=== PATIENT | male | born 1985 | race Caucasian/White ===

== ENCOUNTER 2018-06-09 15:48 | Emergency (ER) | payer MEDICAID ==
[2018-06-09] MEDS ORDERED: Sodium Chloride 0.9% 10 ML Syringe FLUSH PRN (15:59)
[2018-06-09] MEDS ORDERED: Nitroglycerin 0.4 MG Tab.SL SL PRN (16:01)
[2018-06-09 16:26] LABS: CHLORIDE,CL 103 mmol/L (98-107); SODIUM,NA 141 mmol/L (136-145)
[2018-06-09] MEDS ORDERED: Aspirin 81 MG Tab.Chew PO ONE (16:56)
--- NOTE | 2018-06-09 17:04 | EDM.PDOC ---
ED HPI GENERAL MEDICAL PROBLEM - General Chief Complaint: General Stated Complaint: chest/back pain Time Seen by Provider: 06/09/18 15:50 Source of Information: Reports: Patient History Limitations: Reports: No Limitations - History of Present Illness INITIAL COMMENTS - FREE TEXT/NARRATIVE: Patient is a 22-year-old who was seen in the emergency room with chief complaint of right-sided chest pain radiating to the back and right shoulder he states the pain was about 6 out of 10 initially he did have one nitroglycerin ointment relieved somewhat troponins were negative at this time Onset: Today Duration: Hour(s):, Getting Worse Location: Reports: Chest Quality: Reports: Ache, Throbbing Severity: Moderate Improves with: Reports: Rest Worsens with: Reports: Cold Therapy Associated Symptoms: Reports: No Other Symptoms right sided chest pain Pain Score (Numeric/FACES): 5 - Related Data Allergies Allergy/AdvReac Type Severity Reaction Status Date / Time Penicillins Allergy Anaphylactic Verified 06/09/18 15:51 Shock Home Meds: Home Meds Multivitamin [Multi-Vitamin Daily] 1 each PO DAILY 10/19/13 [History] Past Medical History - Past Health History Medical/Surgical History: Denies Medical/Surgical History Social & Family History - Tobacco Use Smoking Status *Q: Current Every Day Smoker Years of Tobacco use: 15 Packs/Tins Daily: 0.2 Used Tobacco, but Quit: No - Caffeine Use Caffeine Use: Reports: Tea - Recreational Drug Use Recreational Drug Use: No - Living Situation & Occupation Living situation: Reports: Single Occupation: Employed ED ROS GENERAL - Review of Systems Review Of Systems: ROS reveals no pertinent complaints other than HPI. ED EXAM, GENERAL - Physical Exam Exam: See Below Exam Limited By: No Limitations General Appearance: Alert, WD/WN, No Apparent Distress Ears: Normal External Exam, Normal Canal, Hearing Grossly Normal, Normal TMs Ear Exam: Bilateral Ear: Auricle Normal, Canal Normal, TM normal Nose: Normal Inspection, Normal Mucosa, No Blood Throat/Mouth: Normal Inspection, Normal Lips, Normal Teeth, Normal Gums, Normal Oropharynx, Normal Voice, No Airway Compromise Head: Atraumatic, Normocephalic Neck: Normal Inspection, Supple, Non-Tender, Full Range of Motion Respiratory/Chest: No Respiratory Distress, Lungs Clear, Normal Breath Sounds, No Accessory Muscle Use, Chest Non-Tender Cardiovascular: Normal Peripheral Pulses, Regular Rate, Rhythm, No Edema, No Gallop, No JVD, No Murmur, No Rub GI/Abdominal: Normal Bowel Sounds, Soft, Non-Tender, No Organomegaly, No Distention, No Abnormal Bruit, No Mass (Male) Exam: No Hernia, Normal Inspection, Normal Prostate, Circumcised Rectal (Males) Exam: Normal Exam, Normal Rectal Tone, Prostate Normal Back Exam: Normal Inspection, Full Range of Motion, NT Extremities: Normal Inspection, Normal Range of Motion, Non-Tender, Normal Capillary Refill, No Pedal Edema Neurological: Alert, Oriented, CN II-XII Intact, Normal Cognition, Normal Gait, Normal Reflexes, No Motor/Sensory Deficits Psychiatric: Normal Affect, Normal Mood Skin Exam: Warm, Dry, Intact, Normal Color, No Rash Lymphatic: No Adenopathy Course - Vital Signs Last Recorded V/S: Last Vital Signs Temp 98.7 F 06/09/18 15:55 Pulse 60 06/09/18 17:45 Resp 13 06/09/18 17:45 BP 111/60 06/09/18 17:45 Pulse Ox 95 06/09/18 17:45 - Orders/Labs/Meds Orders: Active Orders 24 hr Category Date Time Status EKG Documentation Completion [RC] ASDIRECTED Care 06/09/18 16:00 Active Pulse Oximetry [RC] CONTINUOUS Care 06/09/18 16:00 Active Ready for Discharge [RC] PER UNIT ROUTINE Care 06/09/18 20:32 Active Chest 2V [CR] Stat Exams 06/09/18 15:59 Taken Saline Lock Insert [OM.PC] Stat Oth 06/09/18 16:00 Ordered Labs: Laboratory Tests 06/09/18 06/09/18 06/09/18 Range/Units 16:00 16:00 20:00 WBC 9.9 (4.0-10.2) K/uL RBC 4.17 L (4.33-5.41) M/uL Hgb 13.2 (13.1-16.8) g/dL Hct 37.9 L (39.0-49.0) % MCV 90.9 (84.0-98.0) fL MCH 31.7 (28.2-33.3) pg MCHC 34.8 (31.7-36.0) g/dL RDW 12.8 (11.2-14.1) % Plt Count 130 L (150-350) K/uL Neut % (Auto) 61.4 (45.0-80.0) % Lymph % (Auto) 30.3 (10.0-50.0) % Brown % (Auto) 7.6 (2.0-14.0) % Eos % (Auto) 0.5 (0.0-5.0) % Baso % (Auto) 0.2 (0.0-2.0) % Neut # (Auto) 6.09 (1.40-7.00) K/uL Lymph # (Auto) 3.00 (0.50-3.50) K/uL Brown # (Auto) 0.75 (0.00-1.00) K/uL Eos # (Auto) 0.05 (0.00-0.50) K/uL Baso # (Auto) 0.02 (0.00-0.20) K/uL Sodium 141 (136-145) mmol/L Potassium 3.9 (3.5-5.1) mmol/L Chloride 103 (98-107) mmol/L Carbon Dioxide 28.9 (21.0-32.0) mmol/L BUN 12 (7-18) mg/dL Creatinine 0.87 (0.51-1.17) mg/dL Est Cr Clr Drug Dosing 127.42 mL/min Estimated GFR (MDRD) > 60 mL/min Glucose 87 (74-106) mg/dL Calcium 9.3 (8.5-10.1) mg/dL Total Bilirubin 0.5 (0.2-1.0) mg/dL AST 20 (15-37) U/L ALT 26 (12-78) U/L Alkaline Phosphatase 41 L (46-116) IU/L Troponin I 0.000 0.002 (0.000-0.056) ng/mL Total Protein 7.4 (6.4-8.2) g/dL Albumin 4.2 (3.4-5.0) g/dL Meds: Medications Discontinued Medications Generic Name Dose Route Start Last Admin Trade Name Freq PRN Reason Stop Dose Admin Aspirin 324 mg 06/09/18 16:56 06/09/18 16:59 Aspirin PO 06/09/18 16:57 324 mg ONETIME ONE Administration Nitroglycerin 0.4 mg 06/09/18 16:01 06/09/18 16:08 Nitrostat SL 0.4 mg Q5M PRN Administration Chest Pain Sodium Chloride 10 ml 06/09/18 15:59 Saline Flush FLUSH ASDIRECTED PRN Keep Vein Open Departure - Departure Time of Disposition: 20:45 Disposition: Home, Self-Care 01 Condition: Good Clinical Impression: Chest pain Qualifiers: Chest pain type: chest pain on breathing Qualified Code(s): R07.1 - Chest pain on breathing - Discharge Information *PRESCRIPTION DRUG MONITORING PROGRAM REVIEWED*: No *COPY OF PRESCRIPTION DRUG MONITORING REPORT IN PATIENT CODY: No Instructions: Nonspecific Chest Pain, [id number], Nitroglycerin sublingual tablets Referrals: PCP,None [Primary Care Provider] - Forms: ED Department Discharge Care Plan Goals: We will go ahead and repeat his troponin and 4 hours and then decide what to do with him. Patient Troponin negative will dc to home with pain management of Ibuprofen 400mg Q6HR for pain. Follow up as needed with PCP - My Orders Last 24 Hours: My Active Orders 06/09/18 15:59 Chest 2V [CR] Stat 06/09/18 16:00 EKG Documentation Completion [RC] ASDIRECTED Pulse Oximetry [RC] CONTINUOUS Saline Lock Insert [OM.PC] Stat 06/09/18 20:32 Ready for Discharge [RC] PER UNIT ROUTINE - Assessment/Plan Last 24 Hours: My Active Orders 06/09/18 15:59 Chest 2V [CR] Stat 06/09/18 16:00 EKG Documentation Completion [RC] ASDIRECTED Pulse Oximetry [RC] CONTINUOUS Saline Lock Insert [OM.PC] Stat 06/09/18 20:32 Ready for Discharge [RC] PER UNIT ROUTINE
== END 2018-06-09 20:45 | disposition home or self-care (01) ==
LOC: LL.ED 15:48
DX: R07.1 Chest pain on breathing (principal); F17.210 Nicotine dependence, cigarettes, uncomplicated; Z88.0 Allergy status to penicillin
CPT/HCPCS: 36415; 71046; 80053; 84484; 85025; 93005; 99285; A9270

== ENCOUNTER 2019-09-07 10:50 | Emergency (ER) | payer MEDICAID, OTHER ==
--- NOTE | 2019-09-07 11:39 | EDM.PDOC ---
ED HPI GENERAL MEDICAL PROBLEM - General Chief Complaint: General Stated Complaint: hit in head by bottom of the drill Time Seen by Provider: 09/07/19 11:00 Source of Information: Reports: Patient History Limitations: Reports: No Limitations - History of Present Illness INITIAL COMMENTS - FREE TEXT/NARRATIVE: Pt hit on right side of forehead with bottom of drill No LOC Does have swelling to right side of head No other complaints Onset: Today, Sudden Location: Reports: Head Context: Reports: Trauma head pain Pain Score (Numeric/FACES): 4 - Related Data Allergies Allergy/AdvReac Type Severity Reaction Status Date / Time Penicillins Allergy Anaphylactic Verified 09/07/19 11:01 Shock Home Meds: Home Meds . [No Known Home Meds] 09/07/19 [History] Past Medical History - Past Health History Medical/Surgical History: Denies Medical/Surgical History Social & Family History - Caffeine Use Caffeine Use: Reports: Tea - Living Situation & Occupation Living situation: Reports: Single Occupation: Employed ED ROS GENERAL - Review of Systems Review Of Systems: See Below HEENT: Reports: Other (Right forehead with bruising and swelling) ED EXAM, GENERAL - Physical Exam Exam: See Below Exam Limited By: No Limitations General Appearance: Alert, No Apparent Distress Eye Exam: Bilateral Eye: EOMI, PERRL Ears: Normal External Exam Nose: Normal Inspection Head: Other (Right forehead with bruising and swelling Mimnimal brusing to upper eye lid) Neurological: Alert, Oriented, No Motor/Sensory Deficits Psychiatric: Normal Affect, Normal Mood Course - Vital Signs Last Recorded V/S: Last Vital Signs Temp 98.8 F 09/07/19 10:59 Pulse 78 09/07/19 10:59 Resp 20 09/07/19 10:59 BP 119/74 09/07/19 10:59 Pulse Ox 95 09/07/19 10:59 - Orders/Labs/Meds Orders: Active Orders 24 hr Category Date Time Status Head wo Cont [CT] Stat Exams 09/07/19 10:57 Ordered - Re-Assessments/Exams Free Text/Narrative Re-Assessment/Exam: 09/07/19 11:38 CT: Negative per radiologist Departure - Departure Time of Disposition: 11:45 Disposition: Home, Self-Care 01 Clinical Impression: Forehead contusion Qualifiers: Encounter type: initial encounter Qualified Code(s): S00.83XA - Contusion of other part of head, initial encounter - Discharge Information *PRESCRIPTION DRUG MONITORING PROGRAM REVIEWED*: Not Applicable *COPY OF PRESCRIPTION DRUG MONITORING REPORT IN PATIENT CODY: Not Applicable Instructions: Facial or Scalp Contusion Referrals: PCP,None [Primary Care Provider] - Sepsis Event Note (ED) - Evaluation Sepsis Screening Result: No Definite Risk - Focused Exam Vital Signs: Vital Signs Temp Pulse Resp BP Pulse Ox 09/07/19 10:59 98.8 F 78 20 119/74 95 - My Orders Last 24 Hours: My Active Orders 09/07/19 10:57 Head wo Cont [CT] Stat - Assessment/Plan Last 24 Hours: My Active Orders 09/07/19 10:57 Head wo Cont [CT] Stat
== END 2019-09-07 11:50 | disposition home or self-care (01) ==
LOC: LL.ED 10:50
DX: S00.83XA Contusion of other part of head, initial encounter (principal); Z88.0 Allergy status to penicillin; W22.8XXA Striking against or struck by other objects, initial encounter
CPT/HCPCS: 70450; 99283-25

== ENCOUNTER 2020-01-27 11:45 | Emergency (ER) | payer MEDICAID ==
--- NOTE | 2020-01-27 12:07 | EDM.PDOC ---
ED HPI GENERAL MEDICAL PROBLEM - General Chief Complaint: Lower Extremity Injury/Pain Stated Complaint: right leg pain Time Seen by Provider: 01/27/20 12:00 Source of Information: Reports: Patient, Old Records ([facility] chart/EMR) History Limitations: Reports: No Limitations - History of Present Illness INITIAL COMMENTS - FREE TEXT/NARRATIVE: The patient drove himself to the emergency room via private automobile for evaluation of -01/07 right low back pain associated with right sciatica over the lateral thigh and into the foot with no history of paresthesias, neurological deficits, injury, etc. He has missed work since 01/24 with his symptoms starting about 3 weeks ago. His symptoms have been refractory with care process manager for the last 3 weeks with patient following up with his regular provider, Aneesh Marie PA-C, at the [facility] in [place], yesterday with initiation of Celebrex and Flexeril therapy at that time, however no significant improvement in his symptoms. No recent history of abdominal pain, heartburn, nausea, diarrhea, melena, gross hematochezia, or any food intolerance, including fatty foods, etc.. He denies any gross hematuria, colic, or other UTI symptoms. The patient also denies any recent fever, cough, wheezing, dyspnea, etc.. Onset: Gradual, Other Duration: Week(s): (3 weeks as above), Getting Worse Location: Reports: Back, Lower Extremity, Right, Radiates to (As above). Denies: Head, Face, Neck, Chest, Abdomen, Pelvis, Upper Extremity, Left, Upper Extremity, Right, Lower Extremity, Left Quality: Reports: Same as Previous Episode, Sharp, Stabbing, Throbbing Severity: Severe Improves with: Reports: None Worsens with: Reports: None Context: Denies: Trauma, Other (As above) Treatments DIRECTOR WOMEN: Reports: Cold Therapy, NSAIDS, Other Medication(s) (As above) right leg pain Pain Score (Numeric/FACES): 8 - Related Data Allergies Allergy/AdvReac Type Severity Reaction Status Date / Time Penicillins Allergy Anaphylactic Verified 01/27/20 11:46 Shock Home Meds: Home Meds Celecoxib 200 mg PO BID 01/27/20 [History] Multivitamin 1 each PO DAILY 01/27/20 [History] diazePAM [Valium] 10 mg PO Q6H PRN #10 tab 01/27/20 [Rx] Past Medical History HEENT History: Reports: Other (See Below) Other HEENT History: Nasal polyps. Benign nasal Tornwaldt cyst. Respiratory History: Reports: Bronchitis, Recurrent Musculoskeletal History: Reports: Arthritis, Back Pain, Chronic, Osteoarthritis Neurological History: Reports: Headaches, Chronic, Migraines - Past Imaging History Past Imaging History: Reports: CAT Scan (CT of the head on 09/07/2019.), MRA (MRA and MRI of the brain on 12/17/2011.), MRI (MRI of the brain on 12/17/2011.), Ultrasound (Soft tissue ultrasound of the chest and diaphragm on 08/18/2015.) Social & Family History - Tobacco Use Tobacco Use Status *Q: Current Every Day Tobacco User Tobacco Use Within Last Twelve Months: Cigarettes Years of Tobacco use: 20 Packs/Tins Daily: 0.2 Packs/Tins Daily Comment: Started smoking at age 14 with maximum use of 1 pack/day. Used Tobacco, but Quit: Yes Smoking Cessation Information Provided To Patient: Yes Second Hand Smoke Exposure: No Second Hand Smoke Education Provided: No - Caffeine Use Caffeine Use: Reports: Tea - Alcohol Use Alcohol Use History: Yes Days Per Week of Alcohol Use: 0 Number of Drinks Per Day: 2 Number of Drinks Per Day Comment: Usually beer about once per year. No previous DWIs, problems with alcohol abuse, etc. Total Drinks Per Week: 0 Alcohol Use in Last Twelve Months: Yes - Recreational Drug Use Recreational Drug Use: Yes Drug Use in Last 12 Months: No Recreational Drug Type: Reports: Amphetamines (Speed), Marijuana/Hashish, Methamphetamine, Other (see below) Other Recreational Drug Type: Previous illicit drug use as above last used about 16 years ago. 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 ED EXAM, GENERAL - Physical Exam Exam: See Below Exam Limited By: No Limitations General Appearance: Alert, WD/WN, No Apparent Distress Head: Atraumatic Neck: Normal Inspection, Supple, Non-Tender, Full Range of Motion. No: Lymphadenopathy (L), Lymphadenopathy (R), Thyromegaly Respiratory/Chest: No Respiratory Distress, Lungs Clear, Normal Breath Sounds, No Accessory Muscle Use, Chest Non-Tender. No: Pleural Rub, Retractions Cardiovascular: Normal Peripheral Pulses, Regular Rate, Rhythm, No Edema, No Gallop, No JVD, No Murmur, No Rub. No: Gallop/S3, Gallop/S4, Friction Rub Peripheral Pulses: 2+: Radial (L), Radial (R), Dorsalis Pedis (L), Dorsalis Pedis (R) GI/Abdominal: Normal Bowel Sounds, Soft, Non-Tender, No Organomegaly, No Distention, No Abnormal Bruit, No Mass. No: Guarding (Male) Exam: Deferred Rectal (Males) Exam: Deferred Back Exam: Decreased Range of Motion (Mild secondary to discomfort), Muscle Spasm (Moderate right to lower lumbar region), Paraspinal Tenderness (Mild in right mid to lower lumbar region). No: CVA Tenderness (L), CVA Tenderness (R), Vertebral Tenderness Extremities: Normal Inspection, Normal Range of Motion, Non-Tender, No Pedal Edema, Normal Capillary Refill. No: Carlos's Sign Neurological: Alert, Oriented, CN II-XII Intact, Normal Cognition, Normal Gait, Normal Reflexes (4/4 DTRs of the lower extremities), No Motor/Sensory Deficits Psychiatric: Normal Affect, Normal Mood Skin Exam: Warm, Dry, Intact, Normal Color, No Rash. No: Diaphoretic, Wound/Incision Lymphatic: No Adenopathy Course - Vital Signs Last Recorded V/S: Last Vital Signs Temp 37.1 C 01/27/20 11:49 Pulse 87 01/27/20 13:44 Resp 12 01/27/20 13:44 BP 118/67 01/27/20 13:44 Pulse Ox 98 01/27/20 13:44 Vital Signs - 24 hr 01/27/20 01/27/20 11:49 13:44 Temperature [ 37.1 C Temporal] Pulse, 76 87 Peripheral [ Left] Respiratory 18 12 Rate Blood Pressure 117/66 118/67 [Left Upper Arm ] O2 Sat by Pulse 100 98 Oximetry - Orders/Labs/Meds Orders: Active Orders 24 hr Category Date Time Status Lumbar Spine Min 4V [CR] Stat Exams 01/27/20 12:08 Taken Labs: None Meds: Medications Discontinued Medications Generic Name Dose Route Start Last Admin Trade Name Freq PRN Reason Stop Dose Admin Diazepam 10 mg 01/27/20 12:08 01/27/20 12:13 Valium IM 01/27/20 12:09 10 mg ONETIME ONE Administration Meperidine HCl 50 mg 01/27/20 13:07 01/27/20 13:12 Demerol IM 01/27/20 13:08 50 mg ONETIME ONE Administration Methylprednisolone Acetate 80 mg 01/27/20 12:08 01/27/20 12:13 Depo-Medrol IM 01/27/20 12:09 80 mg ONETIME ONE Administration Promethazine HCl 50 mg 01/27/20 13:07 01/27/20 13:13 Phenergan IM 01/27/20 13:08 50 mg ONETIME ONE Administration - Radiology Interpretation Free Text/Narrative:: X-rays of the lumbar spine, complete, including oblique views, shows evidence of mild osteoarthritic changes with minimal decreased lordosis but no evidence of fracture, etc. Departure - Departure Time of Disposition: 14:10 Disposition: Home, Self-Care 01 Condition: Good Clinical Impression: Low back pain, Osteoarthritis, Tobacco abuse counseling - Discharge Information *PRESCRIPTION DRUG MONITORING PROGRAM REVIEWED*: Not Applicable *COPY OF PRESCRIPTION DRUG MONITORING REPORT IN PATIENT CODY: Not Applicable Prescriptions: diazePAM [Valium] 10 mg PO Q6H PRN #10 tab PRN Reason: Spasms Instructions: Steps to Quit Smoking, [id number], Health Risks of Smoking, Promethazine injection, Meperidine injection, Acute Back Pain, Adult, Diazepam injection, Methylprednisolone Solution for Injection, Chronic Back Pain, [id number], Diazepam tablets, Methylprednisolone Suspension for Injection Referrals: Aneesh Marie PA [Primary Care Provider] - Forms: ED Department Discharge, ED Return to Work/School Form Additional Instructions: 1. Followup with your regular provider in 7 days as directed with consideration of further physical therapy, scheduling of an MRI of the lumbar spine, etc. at that time depending on your symptoms. Bring these discharge instructions with you to that visit. 2. Tylenol 650 mg by mouth every 4 hours when necessary as directed. You may use this in a staggering manner with your current Celebrex therapy 3. Diazepam next dose as needed in 6 hours secondary to medications given in the emergency room. Sedation and dependency precautions with this medication as discussed. Do not take diazepam with your cyclobenzaprine, although your cyclobenzaprine may be reinitiated after you complete the diazepam therapy. 4. This facility will call you later for initiation of recommended physical therapy with continuation of chiropractic treatments thereafter as before. 5. Sedation precautions with no driving, etc. for 18 hours because of emergency room medications. 6. BenGay or equivalent, heating pad, and/or ice packs as directed. 7. Work excuse- See Form 8. Stop all tobacco use [facility] as directed/per provided information and consider contacting Quit LIne, etc.. 9. Immediately after this visit verify that your cellular telephone's voicemail has been activated and is empty. Also verify that your home telephone's answering machine is operating properly and has space to receive messages. Note that it is sometimes necessary for us to be able to contact you at a later date to discuss your medical care. 10. Please remember that we are ALWAYS here for you and want to answer any questions you may have. Feel free to call the hospital any time and we call you back [facility]. Sepsis Event Note (ED) - Evaluation Sepsis Screening Result: No Definite Risk - Focused Exam Vital Signs: Vital Signs Pulse Resp BP Pulse Ox 01/27/20 13:44 87 12 118/67 98 - Problem List & Annotations (1) Low back pain SNOMED Code(s): 594806170 Code(s): M54.5 - LOW BACK PAIN Status: Acute Priority: High Onset Date: ~01/06/20 Annotation/Comment:: Aggressive therapy as above with overall good results. Sedation precautions, activity precautions, etc. were discussed. Physical therapy will be initiated in this facility [facility] with continuation of previous chiropractic treatments. Close follow-up with his regular provider in 1 week as per discharge instructions. MRI of the lumbar spine should only be conducted for significantly refractory symptoms with physical therapy, etc., and if the patient is desiring surgery. Work excuse was provided. Qualifiers: Chronicity: acute Back pain laterality: right Sciatica presence: with sciatica Sciatica laterality: sciatica of right side Qualified Code(s): M54.41 - Lumbago with sciatica, right side (2) Osteoarthritis SNOMED Code(s): 344083259 Code(s): M19.90 - UNSPECIFIED OSTEOARTHRITIS, UNSPECIFIED SITE Status: Chronic Priority: Medium Annotation/Comment:: Otherwise stable by history Qualifiers: Osteoarthritis location: multiple joints Osteoarthritis type: primary Qualified Code(s): M89.49 - Other hypertrophic osteoarthropathy, multiple sites (3) Tobacco abuse counseling SNOMED Code(s): 433422152, 757187895, [id number] Code(s): Z71.6 - TOBACCO ABUSE COUNSELING Status: Chronic Priority: Medium Annotation/Comment:: Tobacco cessation was once again strongly encouraged with information provided. - Problem List Review Problem List Initiated/Reviewed/Updated: Yes - My Orders Last 24 Hours: My Active Orders 01/27/20 12:08 Lumbar Spine Min 4V [CR] Stat - Assessment/Plan Last 24 Hours: My Active Orders 01/27/20 12:08 Lumbar Spine Min 4V [CR] Stat Assessment:: As above Plan: As above. Extensive precautions were given to the patient, who is in agreement with the treatment plan. See Patient Instructions for further treatment and plan. A friend did come to pick him up to bring him home.
[2020-01-27] MEDS ORDERED: methylPREDNISolone Acetate 80 MG/ML SDV IM ONE (12:08)
[2020-01-27] MEDS ORDERED: Meperidine PF 25 MG/ML SDV IM ONE (13:07)
[2020-01-27] MEDS ORDERED: Promethazine 25 MG/ML SDV IM ONE (13:07)
== END 2020-01-27 14:10 | disposition home or self-care (01) ==
LOC: LL.ED 11:45
DX: M54.5 Low back pain (principal); M19.90 Unspecified osteoarthritis, unspecified site; Z71.6 Tobacco abuse counseling; F17.210 Nicotine dependence, cigarettes, uncomplicated; Z88.0 Allergy status to penicillin; Z79.899 Other long term (current) drug therapy
CPT/HCPCS: 72110; 96372; 99283; 99283-25; J1040; J2175; J2550; J3360

== ENCOUNTER 2020-04-10 02:31 | Observation (INO) | payer MEDICAID ==
[2020-04-10] MEDS ORDERED: methylPREDNISolone Sodium Succinate 125 MG/2 ML SDV IVPUSH ONE ×2 (03:12→20:00)
[2020-04-10] MEDS ORDERED: Morphine 2 MG/ML SYRINGE IVPUSH ONE (03:12)
[2020-04-10] MEDS ORDERED: Ketorolac 30 MG/ML SDV IVPUSH ONE (03:12)
[2020-04-10] MEDS ORDERED: Diazepam 5 MG Tab PO ONE (03:23)
--- NOTE | 2020-04-10 03:29 | EDM.PDOC ---
ED HPI GENERAL MEDICAL PROBLEM - General Chief Complaint: Lower Extremity Injury/Pain Stated Complaint: right leg pain Time Seen by Provider: 04/10/20 03:00 Source of Information: Reports: Patient History Limitations: Reports: No Limitations - History of Present Illness INITIAL COMMENTS - FREE TEXT/NARRATIVE: Patient comes to ER via EMS due to right sciatic pain. Triggered after he bent over yesterday and felt "popping" sensation in low back. [place] numbness/pain in sciatic nerve pattern. Pain has gradually become more severe since then. Unable to walk. Unable to find comfortable position. Denies feeling weak in lower extremities. No loss of bowel or bladder control. No recollection of any specific back injury in past. Was seen for similar symptoms in this ER last fal l/refer to medical record for information regarding that visit. Plain films performed at that time and so significant findings overall were note. Pain resolved eventually. No other acute complaints. 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 WORKER: zofran 4mg IV and 50mcg fentanyl IV given by EMS Coy in route Right Leg Pain Score (Numeric/FACES): 6 - Related Data Allergies Allergy/AdvReac Type Severity Reaction Status Date / Time Penicillins Allergy Anaphylactic Verified 04/10/20 02:37 Shock Home Meds: Home Meds Celecoxib 200 mg PO BID 01/27/20 [History] Multivitamin 1 each PO DAILY 01/27/20 [History] diazePAM [Valium] 10 mg PO Q6H PRN #10 tab 01/27/20 [Rx] Past Medical History - Past Health History Medical/Surgical History: Denies Medical/Surgical History HEENT History: Reports: Other (See Below) Other HEENT History: Nasal polyps. Benign nasal Tornwaldt cyst. Respiratory History: Reports: Bronchitis, Recurrent Musculoskeletal History: Reports: Arthritis, Back Pain, Chronic, Osteoarthritis Neurological History: Reports: Headaches, Chronic, Migraines Psychiatric History: Reports: Addiction (remote history of addiction) - Past Imaging History Past Imaging History: Reports: CAT Scan (CT of the head on 09/07/2019.), MRA (MRA and MRI of the brain on 12/17/2011.), MRI (MRI of the brain on 12/17/2011.), Ultrasound (Soft tissue ultrasound of the chest and diaphragm on 08/18/2015.) Social & Family History - Tobacco Use Tobacco Use Status *Q: Current Every Day Tobacco User Years of Tobacco use: 15 Packs/Tins Daily: 0.5 - Caffeine Use Caffeine Use: Reports: Tea - Recreational Drug Use Recreational Drug Use: Yes Drug Use in Last 12 Months: Yes Recreational Drug Type: Reports: Marijuana/Hashish Recreational Drug Use Frequency: Rarely - Living Situation & Occupation Living situation: Reports: Single (2 children) Occupation: Employed ([employer] 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 ED EXAM, GENERAL - Physical Exam Exam: See Below Exam Limited By: Other (pain complaint made it hard for patient to sit still/also insisted on staying in prone position while propped up on elbows due to best position of comfort.) General Appearance: Severe Distress (moaning, restless) Eye Exam: Bilateral Eye: EOMI, PERRL Ears: Hearing Grossly Normal Nose: No: Nasal Deformity, Nasal Swelling, Nasal Drainage Throat/Mouth: Normal Lips, Normal Voice, No Airway Compromise Head: Atraumatic, Normocephalic Neck: Supple, Non-Tender, Full Range of Motion Respiratory/Chest: No Respiratory Distress, Lungs Clear, Normal Breath Sounds, No Accessory Muscle Use, Chest Non-Tender Cardiovascular: Regular Rate, Rhythm, No Murmur GI/Abdominal: Soft, Non-Tender (Male) Exam: Deferred Rectal (Males) Exam: Deferred Back Exam: Other (tender over right buttocks/sciatic notch, right L-S junction). No: CVA Tenderness (L), CVA Tenderness (R), Paraspinal Tenderness, Vertebral Tenderness Extremities: Non-Tender, Normal Capillary Refill. No: Increased Warmth, Mottled, Pallor Neurological: Alert, Oriented, Normal Cognition, Other (appears to have equal tone bilaterally. Unable to check DTRs due to patient wanting to stay laying on stomach. Patient reports some numbness/tingling sensation down back/side of right leg. ) Psychiatric: Anxious Skin Exam: Warm, Dry, Intact, Normal Color Course - Vital Signs Last Recorded V/S: Last Vital Signs Temp 36.2 C 04/10/20 03:46 Pulse 50 L 04/10/20 03:46 Resp 14 04/10/20 03:46 BP 108/60 04/10/20 03:46 Pulse Ox 97 04/10/20 03:46 - Orders/Labs/Meds Orders: Active Orders 24 hr Category Date Time Status Lumbar Spine wo Cont [CT] Stat Exams 04/10/20 02:45 Ordered Meds: Medications Discontinued Medications Generic Name Dose Route Start Last Admin Trade Name Cathryn PRN Reason Stop Dose Admin Diazepam 5 mg 04/10/20 03:23 04/10/20 03:37 Valium. PO 04/10/20 03:24 5 mg ONETIME ONE Administration Ketorolac Tromethamine 30 mg 04/10/20 03:12 04/10/20 03:21 Toradol IVPUSH 04/10/20 03:13 30 mg ONETIME ONE Administration Methylprednisolone Sodium Succinate 125 mg 04/10/20 03:12 04/10/20 03:27 Solu-Medrol IVPUSH 04/10/20 03:13 125 mg ONETIME ONE Administration Morphine Sulfate 2 mg 04/10/20 03:12 04/10/20 03:22 Morphine IVPUSH 04/10/20 03:13 2 mg ONETIME ONE Administration - Radiology Interpretation CT Results Date: 04/10/20 CT Results Time: 03:56 (Disc extrusion L4-L5 with nerve compression noted.) - Re-Assessments/Exams Free Text/Narrative Re-Assessment/Exam: 04/10/20 03:34 Patient received Fentanyl from EMS while en route to ER. Continued to be very uncomfortable in ER. After obtaining noncontrast lumbar CT he was given MS/Valium/Toradol/Solu-Medrol. Results of CT still pending. At this point of time there is no way patient can be discharged from ER as he is unable to stand up/ambulate due to the sciatic symptoms. Plan is to admit observation for further pain control. Will see if he can be scheduled for MRI study later today. Departure - Departure Time of Disposition: 03:37 Disposition: Refer to Observation Condition: Good Clinical Impression: Acute right-sided back pain with sciatica, Intervertebral disc extrusion - Discharge Information Referrals: PCP,Unknown [Primary Care Provider] - Forms: ED Department Discharge Sepsis Event Note (ED) - Evaluation Sepsis Screening Result: No Definite Risk - Focused Exam Vital Signs: Vital Signs Temp Pulse Resp BP Pulse Ox 04/10/20 03:46 36.2 C 50 L 14 108/60 97 01/11/21 03:31 55 L 14 95/72 96 04/10/20 02:54 77 16 139/97 H 97 04/10/20 02:35 37.1 C 75 15 121/71 98 - Problem List & Annotations (1) Acute right-sided back pain with sciatica SNOMED Code(s): 072787521 Code(s): M54.41 - LUMBAGO WITH SCIATICA, RIGHT SIDE Status: Acute Priority: High Current Visit: Yes Onset Date: ~04/09/20 Annotation/Comment:: Noted on CT to have disc extrusion L4-L5 level with associa prtaeek nerve compression. Previous history of similar episode acute right low back/sciatic pattern pain last fall. No history of remote injury. Admit for pain control. Will see if patient can be scheduled for MRI study of lumbar spine later today if there is opening in schedule. - Problem List Review Problem List Initiated/Reviewed/Updated: Yes - My Orders Last 24 Hours: My Active Orders 04/10/20 02:45 Lumbar Spine wo Cont [CT] Stat - Assessment/Plan Admission H&P: Please use this note as an admission H&P Last 24 Hours: My Active Orders 04/10/20 02:45 Lumbar Spine wo Cont [CT] Stat Assessment:: as above. Stable and suitable for general supervision Plan: as above. Anticipate 1-2 day stay depending on clinical course and response to medications. Follow up after discharge will need to consider PT and/or Neurosurgery consult.
[2020-04-10] MEDS ORDERED: Ondansetron 4 MG/2 ML SDV IVPUSH PRN (04:00)
[2020-04-10] MEDS ORDERED: Ketorolac 30 MG/ML SDV IVPUSH SCH (04:00)
[2020-04-10] MEDS ORDERED: Acetaminophen 325 MG Tab PO PRN (04:00)
[2020-04-10] MEDS ORDERED: Sodium Chloride 0.9% 1,000 ML IV ONE (04:06)
[2020-04-10] MEDS: Nicotine 21 MG/24 Hr Patch TRDERM SCH ×2 (04:54→08:46)
[2020-04-10] MEDS: Morphine 2 MG/ML SYRINGE IVPUSH PRN ×3 (06:42→13:51)
[2020-04-10 07:33] LABS: CHLORIDE,CL 101 mmol/L (98-107); SODIUM,NA 139 mmol/L (136-145)
[2020-04-10] MEDS: Ketorolac 30 MG/ML SDV IVPUSH SCH ×3 (09:49→20:13)
[2020-04-10] MEDS: Sodium Chloride 0.9% 10 ML Syringe FLUSH PRN ×4 (11:08→20:15)
[2020-04-10] MEDS ORDERED: Diazepam 5 MG Tab PO PRN (12:00)
--- NOTE | 2020-04-10 23:58 | PCM.SN.2 ---
- Free Text/Narrative Note: Pain is slowly improving. to assume care in AM. May need to consider full admission if patient unable to ambulate and perform ADLs.
[2020-04-11] MEDS: Ketorolac 30 MG/ML SDV IVPUSH SCH ×2 (05:05→08:27)
[2020-04-11] MEDS: Nicotine 21 MG/24 Hr Patch TRDERM SCH (08:27)
[2020-04-11] MEDS: Sodium Chloride 0.9% 10 ML Syringe FLUSH PRN (08:29)
--- NOTE | 2020-04-11 09:55 | PCM.DCSUM1 ---
Discharge Summary - Hospital Course HPI Initial Comments: See emergency room note/mention H&P Brief History: See emergency room note/admission H&P Diagnosis: Stroke: No Modified [place] Scale: No Symptoms at All Modified [place] Scale Score: 0 - Discharge Data Discharge Date: 04/11/20 Discharge Disposition: Home, Self-Care 01 Condition: Good - Referral to Home Health Primary Care Physician: PCP None - Discharge Diagnosis/Problem(s) (1) Acute right-sided back pain with sciatica SNOMED Code(s): 970320517 ICD Code: M54.41 - LUMBAGO WITH SCIATICA, RIGHT SIDE Status: Acute Priority: High Current Visit: Yes Onset Date: ~04/09/20 Problem Details: Noted on CT and MRI of the lumbar spine to have right-sided disc extrusion L4-L5 level with associated nerve compression as below. Physical therapy did consult with the patient earlier today with continuation of outpatient therapy for now. His symptoms have essentially resolved with therapy since admission. He already does have Valium at home, however this will be discontinued secondary to risk of dependency. Low-dose diazepam was given during this hospitalization. Change from previous as needed diazepam and Celebrex to as needed Tylenol/ibuprofen and Flexeril at home as per discharge instructions. Sedation precautions were given. Continue physical therapy, symptomatic relief, etc. Various therapeutic options were discussed with the patient, who does not wish to have a neurosurgical referral at this time. Close follow-up with regular provider as per discharge instructions. Work excuse was provided with earlier follow-up appointment, if the patient desires. Note previous history of similar episode acute right low back/sciatic pattern pain last fall. No history of remote injury. (2) Low back pain SNOMED Code(s): 848889161 ICD Code: M54.5 - LOW BACK PAIN Status: Acute Priority: High Current Visit: Yes Onset Date: ~01/06/20 Problem Details: As above Qualifiers: Chronicity: acute Back pain laterality: right Sciatica presence: with sciatica Sciatica laterality: sciatica of right side Qualified Code(s): M54.41 - Lumbago with sciatica, right side (3) Osteoarthritis SNOMED Code(s): 981693307 ICD Code: M19.90 - UNSPECIFIED OSTEOARTHRITIS, UNSPECIFIED SITE Status: Chronic Priority: Medium Current Visit: Yes Problem Details: Otherwise stable by history Qualifiers: Osteoarthritis location: multiple joints Osteoarthritis type: primary Qualified Code(s): M89.49 - Other hypertrophic osteoarthropathy, multiple sites (4) Tobacco abuse counseling SNOMED Code(s): 272303965, 068492404, 376726190 ICD Code: Z71.6 - TOBACCO ABUSE COUNSELING Status: Chronic Priority: Medium Current Visit: Yes Problem Details: Tobacco cessation was once again strongly encouraged with information provided at discharge. (5) Leukocytosis SNOMED Code(s): 268236698, 083072330 ICD Code: D72.829 - ELEVATED WHITE BLOOD CELL COUNT, UNSPECIFIED Status: Acute Priority: High Current Visit: Yes Onset Date: 04/10/20 Problem Details: Mild leukocytosis prior to admission with moderate leukocytosis this morning likely secondary to IV Solu-Medrol therapy yesterday, which the patient received for his low back pain as above. Patient did have a low-grade fever both prior to admission and during this hospitalization, however no local signs of infection. His UA was negative. Lactic acid was normal. Urine specimen set up for culture and sensitivity. Observe for now with patient afebrile at time of discharge. Qualifiers: Leukocytosis type: bandemia Qualified Code(s): D72.825 - Bandemia - Patient Summary/Data Operative Procedure(s) Performed: None Complications: None Consults: Consultations 04/10/20 23:58 OT Evaluation and Treatment [CONS] Routine PT Evaluation and Treatment [CONS] Routine Labs Pending at D/C: Urine culture and sensitivity Recommended Follow-up Testing/Procedures: As per discharge instructions Planned Operative Procedure(s) after DC: None Hospital Course: Patient was placed in observation status for pain control with excellent results as above. Note that the patient did require IV fentanyl by the handicapper harness racing prior to arrival to this facility. He responded extremely well to oral diazepam, IV morphine, etc. during this hospitalization as above. Patient wishes to go home today with continuation of outpatient physical therapy as above. - Patient Instructions Diet: Regular Diet as Tolerated Activity: Apply Ice (As needed), As Tolerated (And directed by PT and OT) Driving: May Drive Today Showering/Bathing: May Shower Notify Provider of: Fever, Increased Pain, Nausea and/or Vomiting Other/Special Instructions: 1. Followup with your regular provider in 7 days as directed for reevaluation and adjustment of your current work excuse. You may see your regular provider sooner than this appointment, if your symptoms improve earlier than expected. Bring these discharge instructions with you to that visit. 2. Tylenol 650 mg by mouth every 4 hours and/or OTC ibuprofen 2-3 tabs by mouth every 6 hours with food as directed./needed. You may stagger these medications for 48-72 hours only, which essentially means that you are receiving a pain medication about every 2 hours. Note discontinuation of your previous Celebrex therapy, which cannot be taken concurrently with ibuprofen. 3. Sedation precautions with Flexeril/cyclobenzaprine. Note discontinuation of your previous diazepam therapy, which cannot be taken concurrently with Flexeril. 4. Stop all tobacco use [facility] as directed/per provided information and consider contacting [employer]uit [employer], etc.. 5. Work excuse- See Form. 6. Continue physical therapy on an outpatient basis as discussed. 7. Immediately after this visit verify that your cellular telephone's voicemail has been activated and is empty. Also verify that your home telephone's answering machine is operating properly and has space to receive messages. Note that it is sometimes necessary for us to be able to contact you at a later date to discuss your medical care. 8. Please remember that we are ALWAYS here for you and want to answer any questions you may have. Feel free to call the hospital any time and we call you back [facility]. - Discharge Plan *PRESCRIPTION DRUG MONITORING PROGRAM REVIEWED*: Not Applicable *COPY OF PRESCRIPTION DRUG MONITORING REPORT IN PATIENT CODY: Not Applicable Prescriptions/Med Rec: Cyclobenzaprine [Flexeril] 10 mg PO TID PRN #30 tab PRN Reason: Spasms Home Medications: Home Meds Multivitamin 1 each PO DAILY 01/27/20 [History] Acetaminophen [Tylenol] 650 mg PO Q4H PRN tablet 04/11/20 [Rx] Cyclobenzaprine [Flexeril] 10 mg PO TID PRN #30 tab 04/11/20 [Rx] Oxygen Therapy Mode: Room Air Patient Handouts: Steps to Quit Smoking, [id number], Health Risks of Smoking, Sciatica, [id number] Forms: Return to Work/Inpatient LLN, ED Department Discharge Referrals: PCP,Unknown [Ordering Only Provider] - - Discharge Summary/Plan Comment DC Time >30 min.: Yes (Coordination of care ) Discharge Summary/Plan Comment: As above. Extensive precautions were given to the patient, who is in agreement with the treatment plan. See Patient Instructions for further treatment and plan. - General Info Date of Service: 04/11/20 Admission Dx/Problem (Free Text: 1. Right-sided sciatica 2. Osteoarthritis 3. Tobacco abuse Functional Status: Reports: Pain Controlled, Tolerating Diet, Ambulating, Urinating. Denies: New Symptoms, Incentive Spirometry Numeric/FACES Score: 2 - Review of Systems General: Reports: No Symptoms. Denies: Fever, Weakness, Fatigue, Malaise, Chills, Appetite HEENT: Reports: No Symptoms. Denies: Ear Pain, Eye Pain, Headaches, Sore Throat, Rhinitis, Visual Changes Pulmonary: Reports: No Symptoms. Denies: Shortness of Breath, Pleuritic Chest Pain, Cough, Sputum, Hemoptysis, Wheezing Cardiovascular: Reports: No Symptoms. Denies: Chest Pain, Dyspnea on Exertion, PND, Edema, Lightheadedness Gastrointestinal: Reports: No Symptoms. Denies: Abdominal Pain, Constipation, Decreased Appetite, Diarrhea, Difficulty Swallowing, Flatus, Hematochezia, Melena, Nausea, Vomiting Genitourinary: Reports: No Symptoms. Denies: Dysuria, Frequency, Burning, Pain, Urgency, Incontinence, Hematuria, Retention, Flank Pain Musculoskeletal: Reports: Back Pain (Right sciatica significantly improved) Skin: Reports: No Symptoms. Denies: Diaphoresis, Bruising Neurological: Reports: No Symptoms. Denies: Confusion, Headache, Numbness, Paresthesia, Tingling, Difficulty Walking, Weakness, Gait Disturbance Psychiatric: Reports: No Symptoms. Denies: Confusion, Depression, Anxiety, Agitation, Cravings, Hallucinations - Patient Data Vitals - Most Recent: Last Vital Signs Temp 36.9 C 04/11/20 08:00 Pulse 82 04/11/20 08:00 Resp 18 04/11/20 08:00 BP 122/73 04/11/20 08:00 Pulse Ox 98 04/11/20 08:00 Vital Signs - 24 hr 04/10/20 04/10/20 04/10/20 12:00 16:00 20:00 Temperature [ 37.3 C 37.2 C 36.6 C Temporal] Temperature [ Tympanic] Pulse, 92 51 L 65 Peripheral [ Left Pulse Oximetry] Respiratory 20 20 18 Rate Blood Pressure 121/81 125/74 118/62 [Right Upper Arm] O2 Sat by Pulse 98 98 100 Oximetry 04/11/20 08:00 Temperature [ Temporal] Temperature [ 36.9 C Tympanic] Pulse, 82 Peripheral [ Left Pulse Oximetry] Respiratory 18 Rate Blood Pressure 122/73 [Right Upper Arm] O2 Sat by Pulse 98 Oximetry Weight - Most Recent: 80 kg I&O - Last 24 hours: Intake & Output 04/10/20 04/11/20 04/11/20 22:59 06:59 14:59 Intake Total 240 520 Balance 240 520 Imaging Impressions - Last 24 hrs: X-ray of the lumbar spine shows no evidence of acute injury CT and MRI of the lumbar spines on 04/10/2020 showed evidence of L4-L5 right- sided disc prolapse Lab Results - Last 24 hrs: Laboratory Tests 04/10/20 04/10/20 04/11/20 Range/Units 07:00 07:00 10:22 WBC 11.7 H 17.0 H (4.0-10.2) K/uL RBC 4.50 4.42 (4.33-5.41) M/uL Hgb 13.8 13.6 (13.1-16.8) g/dL Hct 40.3 39.5 (39.0-49.0) % MCV 89.6 89.4 (84.0-98.0) fL MCH 30.7 30.8 (28.2-33.3) pg MCHC 34.2 34.4 (31.7-36.0) g/dL RDW 12.9 13.0 (11.2-14.1) % Plt Count 140 L 145 L (150-350) K/uL Neut % (Auto) 92.3 H 79.4 (45.0-80.0) % Lymph % (Auto) 6.8 L 10.6 (10.0-50.0) % [place] % (Auto) 0.6 L 9.8 (2.0-14.0) % Eos % (Auto) 0.1 0.1 (0.0-5.0) % Baso % (Auto) 0.2 0.1 (0.0-2.0) % Neut # (Auto) 10.82 H 13.52 H (1.40-7.00) K/uL Lymph # (Auto) 0.80 1.80 (0.50-3.50) K/uL [place] # (Auto) 0.07 1.67 H (0.00-1.00) K/uL Eos # (Auto) 0.01 0.01 (0.00-0.50) K/uL Baso # (Auto) 0.02 0.02 (0.00-0.20) K/uL Sodium 139 (136-145) mmol/L Potassium 3.7 (3.5-5.1) mmol/L Chloride 101 (98-107) mmol/L Carbon Dioxide 25.9 (21.0-32.0) mmol/L BUN 8 (7-18) mg/dL Creatinine 0.65 (0.51-1.17) mg/dL Est Cr Clr Drug Dosing 162.22 mL/min Estimated GFR (MDRD) > 60 mL/min Glucose 114 H (74-106) mg/dL Lactic Acid (0.4-2.0) mmol/L Calcium 8.5 (8.5-10.1) mg/dL Magnesium 2.1 (1.8-2.4) mg/dL Total Bilirubin 0.4 (0.2-1.0) mg/dL AST 21 (15-37) U/L ALT 22 (12-78) U/L Alkaline Phosphatase 43 L (46-116) IU/L Total Protein 7.4 (6.4-8.2) g/dL Albumin 4.1 (3.4-5.0) g/dL Specimen Type Urine Color Urine Appearance Urine pH (5.0-9.0) Ur Specific [place] (1.005-1.030) Urine Protein (NEGATIVE) mg/dL Urine Glucose (UA) (NEGATIVE) mg/dL Urine Ketones (NEGATIVE) mg/dL Urine Occult Blood (NEGATIVE) Urine Nitrite (NEGATIVE) Urine Bilirubin (NEGATIVE) Urine Urobilinogen (0.2-1.0) E.U./dL Ur Leukocyte Esterase (NEGATIVE) Urine RBC /HPF Urine WBC /HPF Ur Epithelial Cells /LPF Urine Bacteria (NONE TO FEW) /HPF 04/11/20 04/11/20 04/11/20 Range/Units 10:22 10:52 10:52 WBC (4.0-10.2) K/uL RBC (4.33-5.41) M/uL Hgb (13.1-16.8) g/dL Hct (39.0-49.0) % MCV (84.0-98.0) fL MCH (28.2-33.3) pg MCHC (31.7-36.0) g/dL RDW (11.2-14.1) % Plt Count (150-350) K/uL Neut % (Auto) (45.0-80.0) % Lymph % (Auto) (10.0-50.0) % [place] % (Auto) (2.0-14.0) % Eos % (Auto) (0.0-5.0) % Baso % (Auto) (0.0-2.0) % Neut # (Auto) (1.40-7.00) K/uL Lymph # (Auto) (0.50-3.50) K/uL [place] # (Auto) (0.00-1.00) K/uL Eos # (Auto) (0.00-0.50) K/uL Baso # (Auto) (0.00-0.20) K/uL Sodium 140 (136-145) mmol/L Potassium 3.7 (3.5-5.1) mmol/L Chloride 103 (98-107) mmol/L Carbon Dioxide 26.7 (21.0-32.0) mmol/L BUN 15 (7-18) mg/dL Creatinine 0.70 (0.51-1.17) mg/dL Est Cr Clr Drug Dosing 150.63 mL/min Estimated GFR (MDRD) > 60 mL/min Glucose 102 (74-106) mg/dL Lactic Acid 1.7 (0.4-2.0) mmol/L Calcium 8.6 (8.5-10.1) mg/dL Magnesium (1.8-2.4) mg/dL Total Bilirubin 0.3 (0.2-1.0) mg/dL AST 14 L (15-37) U/L ALT 22 (12-78) U/L Alkaline Phosphatase 35 L (46-116) IU/L Total Protein 6.6 (6.4-8.2) g/dL Albumin 3.5 (3.4-5.0) g/dL Specimen Type Urinc Urine Color Yellow Urine Appearance Clear Urine pH 7.0 (5.0-9.0) Ur Specific [place] 1.015 (1.005-1.030) Urine Protein Negative (NEGATIVE) mg/dL Urine Glucose (UA) Negative (NEGATIVE) mg/dL Urine Ketones Negative (NEGATIVE) mg/dL Urine Occult Blood Negative (NEGATIVE) Urine Nitrite Negative (NEGATIVE) Urine Bilirubin Negative (NEGATIVE) Urine Urobilinogen 0.2 (0.2-1.0) E.U./dL Ur Leukocyte Esterase Negative (NEGATIVE) Urine RBC Not seen /HPF Urine WBC 0-5 /HPF Ur Epithelial Cells Occasional /LPF Urine Bacteria Rare (NONE TO FEW) /HPF Urine specimen set up for culture and sensitivity. GAURI Results - Last 24 hrs: Urine culture and sensitivity pending as above. Med Orders - Current: Current Medications Acetaminophen (Tylenol) 650 mg PO Q4H PRN PRN Reason: Pain (Mild 1-3)/fever Last Admin: 04/10/20 21:23 Dose: 650 mg Documented by: Diazepam (Valium.) 5 mg PO BID PRN PRN Reason: Spasms Last Admin: 04/10/20 21:23 Dose: 5 mg Documented by: Influenza Virus Vaccine (Pharmacy To Dose - Influenza Vaccine) 1 each IM ONETIME ONE Stop: 04/10/20 16:01 Ketorolac Tromethamine (Toradol) 30 mg IVPUSH Q6H [facility] Last Admin: 04/11/20 08:27 Dose: 30 mg Documented by: Miscellaneous Information (Remove Patch) 1 ea TRDERM DAILY [facility] Last Admin: 04/11/20 08:29 Dose: Not Given Documented by: Morphine Sulfate (Morphine) 1 mg IVPUSH Q1H PRN PRN Reason: Pain (severe 7-10) Last Admin: 04/10/20 13:51 Dose: 1 mg Documented by: Nicotine (Habitrol) 21 mg TRDERM DAILY [facility] Last Admin: 04/11/20 08:27 Dose: Not Given Documented by: Ondansetron HCl (Zofran) 4 mg IVPUSH Q6H PRN PRN Reason: Nausea/Vomiting Sodium Chloride (Saline Flush) 10 ml FLUSH ASDIRECTED PRN PRN Reason: Keep Vein Open Last Admin: 04/11/20 08:29 Dose: 10 ml Documented by: Discontinued Medications Diazepam (Valium.) 5 mg PO ONETIME ONE Stop: 04/10/20 03:24 Last Admin: 04/10/20 03:37 Dose: 5 mg Documented by: Sodium Chloride (Normal Saline) 1,000 mls @ 100 mls/hr IV .BOLUS ONE Stop: 04/10/20 14:05 Last Admin: 04/10/20 04:37 Dose: 100 mls/hr Documented by: Magnesium Sulfate/Dextrose 1 (gm/ Premix) 100 mls @ 100 mls/hr IV ONETIME ONE Stop: 04/10/20 05:17 Last Admin: 04/10/20 04:41 Dose: 100 mls/hr Documented by: Ketorolac Tromethamine (Toradol) 30 mg IVPUSH ONETIME ONE Stop: 04/10/20 03:13 Last Admin: 04/10/20 03:21 Dose: 30 mg Documented by: Ketorolac Tromethamine (Toradol) 30 mg IVPUSH Q6H [facility] Last Admin: 04/10/20 04:24 Dose: Not Given Documented by: Methylprednisolone Sodium Succinate (Solu-Medrol) 125 mg IVPUSH ONETIME ONE Stop: 04/10/20 03:13 Last Admin: 04/10/20 03:27 Dose: 125 mg Documented by: Methylprednisolone Sodium Succinate (Solu-Medrol) 125 mg IVPUSH ONETIME ONE Stop: 04/10/20 20:01 Last Admin: 04/10/20 20:13 Dose: 125 mg Documented by: Morphine Sulfate (Morphine) 2 mg IVPUSH ONETIME ONE Stop: 04/10/20 03:13 Last Admin: 04/10/20 03:22 Dose: 2 mg Documented by: - Exam Quality Assessment: Reports: DVT Prophylaxis. Denies: Supplemental Oxygen, Central Line/PICC, Urine Catheter, Restraints General: Reports: Alert, Oriented, Cooperative, No Acute Distress HEENT: Reports: Pupils Equal, Pupils Reactive, EOMI, Mucous Membr. Moist/[place] Neck: Reports: Supple, Trachea Midline, No JVD, No Thyromegaly. Denies: Thyromegaly Lungs: Reports: Clear to Auscultation, Normal Respiratory Effort. Denies: Rub Cardiovascular: Reports: Regular Rate, Regular Rhythm, No Murmurs. Denies: Gallops, Rubs GI/Abdominal Exam: Normal Bowel Sounds, Soft, Non-Tender, No Organomegaly, No Distention, No Abnormal Bruit, No Mass, Pelvis Stable. No: Guarding (Male) Exam: Deferred Rectal (Males) Exam: Deferred Back Exam: Reports: Normal Inspection, Full Range of Motion. Denies: CVA Tenderness (L), CVA Tenderness (R), Muscle Spasm, Paraspinal Tenderness, Vertebral Tenderness Extremities: Normal Inspection, Normal Range of Motion, Non-Tender, No Pedal Edema, Normal Capillary Refill. No: Carlos's Sign Skin: Reports: Warm, Dry, Intact. Denies: Ecchymosis Neurological: Reports: No New Focal Deficit, Other (Negative Babinski's) Psy/Mental Status: Reports: Alert, Normal Affect, Normal Mood. Denies: Depressed, Agitated, Hallucinations, Withdrawal Symptoms
[2020-04-11 11:06] LABS: CHLORIDE,CL 103 mmol/L (98-107); SODIUM,NA 140 mmol/L (136-145)
== END 2020-04-11 12:01 | disposition home or self-care (01) ==
LOC: LL.ED 02:31 → UNDOADMOB 03:25 → LL.MS 03:25
PROVIDERS: ADMIT Emergency Medicine; ATTEND Emergency Medicine
DX: M51.16 Intervertebral disc disorders with radiculopathy, lumbar region (principal); G89.29 Other chronic pain; G43.909 Migraine, unspecified, not intractable, without status migrainosus; F17.210 Nicotine dependence, cigarettes, uncomplicated; M19.90 Unspecified osteoarthritis, unspecified site; D72.829 Elevated white blood cell count, unspecified; Z88.0 Allergy status to penicillin; Z79.899 Other long term (current) drug therapy
CPT/HCPCS: 36415; 72131; 72148; 80053; 81001; 83605; 83735; 85025; 87086; 96365; 96374; 96375; 96376; 97161-GP; 99217; 99219; 99285-25; A9270-GY; G0378; J1885; J2270; J2930; J3475; J7030

== ENCOUNTER 2020-07-24 15:29 | Emergency (ER) | payer MEDICAID ==
[2020-07-24] MEDS ORDERED: Famotidine 20 MG/2 ML SDV IVPUSH ONE (15:44)
[2020-07-24] MEDS ORDERED: Aspirin 81 MG Tab.Chew CHEW ONE (15:44)
[2020-07-24] MEDS ORDERED: Sodium Chloride 0.9% 10 ML Syringe FLUSH PRN (15:44)
[2020-07-24] MEDS ORDERED: Ticagrelor 90 MG Tab PO ONE (15:44)
--- NOTE | 2020-07-24 15:44 | EDM.PDOC ---
ED HPI GENERAL MEDICAL PROBLEM - General Chief Complaint: Respiratory Problem Stated Complaint: shortness of breath Time Seen by Provider: 07/24/20 15:35 Source of Information: Reports: Patient, Old Records ([facility] chart/EMR) History Limitations: Reports: No Limitations - History of Present Illness INITIAL COMMENTS - FREE TEXT/NARRATIVE: The patient drove himself to the emergency room via private automobile for evaluation of /10 retrosternal chest pressure without radiation with symptoms starting at about 6 PM on 07/21/2020. This has occurred on an intermittent basis with additional initial evidence of a rash in his proximal forearms bilaterally extending to the axillary regions and also on his legs bilaterally extending into the inguinal regions. No known exposure to infection or other change in allergens. He has had some nonspecific dizziness and diffuse arthralgias during the last couple of days with additional chills with diaphoresis, however no fever with temperature not measured to this point. The patient denies any heart flutter, orthostasis, orthopnea, diaphoresis, paresthesias, recent decreased exercise tolerance, or any other anginal-type symptoms. No recent history of abdominal pain, heartburn, nausea, diarrhea, melena, gross hematochezia, or any food intolerance, including fatty foods, etc. with normal bowel movement yest erday. He denies any gross hematuria, colic, or other UTI symptoms. The patient also denies any recent cough, wheezing, although he did start using his DuoNeb nebulizer treatments since yesterday evening etc.. Onset: Gradual Onset Date: 07/21/20 Duration: Intermittent - Related Data Allergies Allergy/AdvReac Type Severity Reaction Status Date / Time Penicillins Allergy Anaphylactic Verified 07/24/20 15:34 Shock Home Meds: Home Meds Multivitamin 1 each PO DAILY 01/27/20 [History] Acetaminophen [Tylenol] 650 mg PO Q4H PRN tablet 04/11/20 [Rx] Albuterol/Ipratropium [DuoNeb 3.0-0.5 MG/3 ML] 1 ampule INH Q4HR PRN 07/24/20 [History] Cholecalciferol (Vitamin D3) [Vitamin D3] 25 mcg PO DAILY 07/24/20 [History] Cyanocobalamin (Vitamin B12) [Vitamin B12] 1,000 mcg PO DAILY 07/24/20 [History] Fish Oil/[place]-3 Fatty Acids [Fish Oil 1,000 MG] 1,000 mg PO DAILY 07/24/20 [History] Glucosam/Chond/Collagen/Hyalur [Glucosamine Chondroitin] 1 cap PO DAILY 07/24/20 [History] Past Medical History HEENT History: Reports: Other (See Below). Denies: Allergic Rhinitis, Cataract, Glaucoma, Hard of Hearing, Impaired Vision, Macular Degeneration, Otitis Media, Retinal Detachment Other HEENT History: Nasal polyps. Benign nasal Tornwaldt cyst. Cardiovascular History: Reports: Other (See Below). Denies: Afib, Aneurysm, Arrhythmia, Blood Clots/VTE/DVT, CAD, Cardiomyopathy, Heart Failure, Heart Murmur, High Cholesterol, Hypertension, ND, PVD, Syncope Other Cardiovascular History: Patient does not know his cholesterol status. Respiratory History: Reports: Asthma, Bronchitis, Recurrent, Other (See Below). Denies: COPD (Any collapsed lung problems 70s oxygen at night likely sleep apnea tuberculosis), Intubation, Difficult, Intubation, Previous (Any surgeries related to put a tube in your lungs to help you breathe during the surgery), PE, Pneumothorax, Pulmonary Fibrosis, Sleep Apnea, TB Other Respiratory History: Severe pulmonary reaction to vaping after only 6 months in late 2019. Gastrointestinal History: Reports: None. Denies: Celiac Disease, Cholelithiasis, Chronic Constipation, Chronic Diarrhea, GERD, GI Bleed, Hepatitis, Inflammatory Bowel Disease, Irritable Bowel Syndrome, Jaundice, Pancreatitis, PUD Genitourinary History: Reports: None. Denies: Acute Renal Failure, BPH, Chronic Renal Insuffiency, Renal Calculus, Retention, Urinary, STD, Urinary Incontinence, UTI, Recurrent Musculoskeletal History: Reports: Arthritis, Back Pain, Chronic, Fracture, Osteoarthritis, Other (See Below). Denies: Gout, Neck Pain, Chronic, RA, SLE Other Musculoskeletal History: Compression fracture at the MCP of digit #2 of the right hand in 2004 with no surgery required. Right-sided L4-L5 disc prolapse requiring surgery as below. Neurological History: Reports: Headaches, Chronic, Migraines. Denies: Cerebral Aneurysms, Concussion, CVA, Head Trauma, MS, Neuropathy, Peripheral, Parkinson's, Seizure, TIA, Vertigo Psychiatric History: Reports: Addiction, Anxiety, Depression, Other (See Below). Denies: Abuse, Victim of, ADD, ADHD, Psych Hospitalization(s), PTSD, Suicide Attempt, Suicidal Ideation Other Psychiatric History: Illicit drug use as below. Endocrine/Metabolic History: Denies: Diabetes, Type I, Diabetes, Type II, Diabetes Mellitus, Type 3c, Hypothyroidism, IDDM Hematologic History: Reports: Other (See Below). Denies: Anemia, Blood Transfusion(s) Other Hematologic History: Thrombocytopenia. Immunologic History: Denies: AIDS, HIV, SLE Oncologic (Cancer) History: Reports: None. Denies: Basal Cell Carcinoma, Colon, Hodgkin's Lymphoma, Leukemia, Lymphoma, Malignant Melanoma, Non-Hodgkin's Lymphoma, Prostate, Squamous Cell Carcinoma Dermatologic History: Reports: None. Denies: Eczema, Psoriasis - Infectious Disease History Infectious Disease History: Reports: Chicken Pox. Denies: C-Difficile, Measles, Meningitis, Mononucleosis, MRSA, Mumps, Novel Coronavirus, Pertussis (Whooping Cough), Rheumatic Fever, Rubella, Scarlet Fever, Shingles, TB, VRE - Past Surgical History Head Surgeries/Procedures: Reports: None HEENT Surgical History: Reports: Adenoidectomy, Oral Surgery, Tonsillectomy, Other (See Below). Denies: Cataract Surgery, Eye Surgery, Laser Surgery, LASIK, Myringotomy w Tube(s), Naso-Sinus Surgery Other HEENT Surgeries/Procedures: Multiple teeth extractions. Tonsillectomy and adenoidectomy at age 7. Cardiovascular Surgical History: Reports: None. Denies: Varicose Respiratory Surgical History: Reports: None. Denies: Thoracentesis GI Surgical History: Reports: None. Denies: Appendectomy, Cholecystectomy, Colonoscopy, EGD, Hernia, Abdominal, Hernia, Inguinal, Hernia Repair/Other Male Surgical History: Reports: Circumcision, Other (See Below). Denies: Vasectomy Other Male Surgeries/Procedures: Circumcision as an Endocrine Surgical History: Reports: None. Denies: Thyroid Biopsy Neurological Surgical History: Reports: Discectomy, Lumbar Spine, Other (See Below). Denies: C-Spine, Laminectomy, Sacral Spine, Spinal Fusion, Thoracic Spine, Vertebroplasty Other Neurological Surgeries/Procedures: L4-L5 discectomy on 05/09/2020. Musculoskeletal Surgical History: Denies: Arthroscopic Procedure, Carpal Tunnel, Ganglion Cyst, Joint Replacement, ORIF, Shoulder Surgery Oncologic Surgical History: Reports: None Dermatological Surgical History: Reports: None - Past Imaging History Past Imaging History: Reports: CAT Scan (CT lumbar spine on 04/10/2020. CT of the head on 09/07/2019.), MRA (MRA and MRI of the brain on 12/17/2011.), MRI (MRI of lumbar spine on 04/10/2020. MRI of the brain on 12/17/2011.), Ultrasound (Soft tissue ultrasound of the chest and diaphragm on 08/18/2015.) Social & Family History - Family History HEENT: Reports: None. Denies: Glaucoma, Impaired Vision, Macular Degeneration Cardiac: Reports: Heart Murmur, Other (See Below). Denies: Afib, Aneurysm, Arrhythmia, Blood Clots/VTE/DVT, CAD, Heart Failure, High Cholesterol, Hypertension, ND, Pacemaker, Syncope Other Cardiac Family History: Father with unknown type of heart murmur. Respiratory: Reports: Asthma, Other (See Below). Denies: COPD, PE, Pneumothorax, Sleep Apnea Other Respiratory Family Hisory: Brother with asthma. GI: Reports: None. Denies: Celiac Disease, Cholelithiasis, Colon Polyps, GERD, GI bleed, Inflammatory Bowel Disease, Irritable Bowel Syndrome, PUD : Reports: None. Denies: Renal Calculus, Renal Disease/Insufficiency OBGYN: Reports: None. Denies: Endometriosis, Recurrent Spontaneous Musculoskeletal: Reports: None. Denies: Arthritis, Gout, RA, SLE Neurological: Reports: None. Denies: Alzheimers Disease, Cerebral Aneurysms, CVA, Dementia, Migraines, MS, Parkinson's, Seizure, TIA Psychiatric: Reports: Anxiety, Depression, Other (See Below). Denies: Abuse, Victim of, ADD, ADHD, Psych Hospitalization(s), PTSD, Suicide Attempt Other Psychiatric Family History: Mother with anxiety depression disorder and history of alcohol abuse. Endocrine/Metabolic: Reports: None. Denies: Diabetes, Type I, Diabetes, type II, Diabetes Mellitus, Type 3c, Hypothyroidism Hematologic: Reports: None. Denies: Anemia, SLE Immunologic: Reports: AIDS, HIV. Denies: SLE Other Immunologic Family History: Paternal uncle with fatal AIDS. Dermatologic: Reports: None. Denies: Eczema, Psoriasis Oncologic: Reports: None. Denies: Colon, Hodgkin's Lymphoma, Leukemia, Lung, Lymphoma, Non-Hodgkin's Lymphoma, Prostate, Skin - Tobacco Use Tobacco Use Status *Q: Current Every Day Tobacco User Tobacco Use Within Last Twelve Months: Cigarettes Years of Tobacco use: 20 Packs/Tins Daily: 0.3 Packs/Tins Daily Comment: Started smoking at age 14 with maximum use of 1 pack/day. Severe pulmonary reaction to vaping as above with no further use. Used Tobacco, but Quit: No Smoking Cessation Information Provided To Patient: Yes Second Hand Smoke Exposure: No Second Hand Smoke Education Provided: No - Caffeine Use Caffeine Use: Reports: Coffee (3-5 cups/day), Tea (1 glass/month). Denies: Energy Drinks, Soda - Alcohol Use Alcohol Use History: Yes Days Per Week of Alcohol Use: 0 Number of Drinks Per Day: 2 Number of Drinks Per Day Comment: Usually for holidays. No previous DWIs, problems with alcohol abuse, etc. Total Drinks Per Week: 0 Alcohol Use in Last Twelve Months: Yes Alcohol Use Frequency: Rarely - Recreational Drug Use Recreational Drug Use: Yes Drug Use in Last 12 Months: Yes Recreational Drug Type: Reports: Amphetamines (Speed), Marijuana/Hashish, Methamphetamine, Other (see below) (None since 2009). Denies: Cocaine, Heroin, Inhalants (Glues, Solvents, Aerosols), LSD (Acid), Morphine, Oxycodone Other Recreational Drug Type: Previous methamphetamine use in his early 20s with no use since 2001. Initial marijuana use at age 14 with current use of 2 times per month. 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 ED EXAM, GENERAL - Physical Exam Exam: See Below Exam Limited By: No Limitations General Appearance: Alert, WD/WN, No Apparent Distress (At the last), Anxious (Mild to moderate) Eye Exam: Bilateral Eye: EOMI, Normal Inspection (No nystagmus or vertigo), PERRL Ears: Normal External Exam, Normal Canal, Hearing Grossly Normal, Normal TMs Nose: Normal Inspection, Normal Mucosa, No Blood Throat/Mouth: Normal Inspection, Normal Lips, Normal Teeth (Multiple missing teeth), Normal Gums, Normal Oropharynx, Normal Voice, No Airway Compromise. No: Dysphagia, Perioral Cyanosis Head: Atraumatic, Normocephalic. No: Facial Swelling, Facial Tenderness, Sinus Tenderness Neck: Normal Inspection, Supple, Non-Tender, Full Range of Motion. No: Carotid Bruit, Lymphadenopathy (L), Lymphadenopathy (R) Respiratory/Chest: No Respiratory Distress, Lungs Clear, Normal Breath Sounds, No Accessory Muscle Use, Chest Non-Tender. No: Rhonchi, Wheezing, Pleural Rub Cardiovascular: Normal Peripheral Pulses, Regular Rate, Rhythm, No Edema, No Gallop, No JVD, No Murmur, No Rub. No: Gallop/S3, Gallop/S4, Friction Rub Peripheral Pulses: 2+: Radial (L), Radial (R), Dorsalis Pedis (L), Dorsalis Pedis (R) GI/Abdominal: Normal Bowel Sounds, Soft, Non-Tender, No Organomegaly, No Distention, No Abnormal Bruit, No Mass (Male) Exam: Deferred Rectal (Males) Exam: Deferred Back Exam: Normal Inspection, Full Range of Motion. No: CVA Tenderness (L), CVA Tenderness (R), Muscle Spasm Extremities: Normal Inspection, Normal Range of Motion, Non-Tender, No Pedal Edema, Normal Capillary Refill. No: Carlos's Sign Neurological: Alert, Oriented, CN II-XII Intact, Normal Cognition, Normal Gait, Normal Reflexes (Negative Babinski's), No Motor/Sensory Deficits Psychiatric: Anxious (Mild to moderate), Depressed Mood (Borderline) Skin Exam: Warm, Dry, Intact, Normal Color, Rash (Minimal and biceps region bilaterally). No: Diaphoretic, Wound/Incision Lymphatic: No Adenopathy #1 Interpretation EKG Date: 07/24/20 Time: 15:56 Rhythm: NSR Rate (Beats/Min): 77 Dodson: Normal P-Wave: Enlarged QRS: Wide ST-T: Other (New T wave inversion in lead V1 with otherwise nonspecific ST changes) QT: Normal CT/PQ Interval: 0.17 seconds with pulmonary hypertension by EKG Comparison: Change From Previous EKG (As above since 06/09/2018) EKG Interpretation Comments: 1. No acute ischemic changes 2. Left atrial enlargement 3. Pulmonary hypertension by EKG 4. Repolarization changes Course - Vital Signs Last Recorded V/S: Last Vital Signs Temp 36.7 C 07/24/20 16:01 Pulse 100 07/24/20 16:01 Resp 16 07/24/20 16:01 BP 136/64 07/24/20 16:01 Pulse Ox 99 07/24/20 16:01 Vital Signs - 24 hr 07/24/20 07/24/20 07/24/20 15:45 15:49 16:01 Temperature [ 36.7 C 36.7 C Temporal] Pulse, 118 H 100 Peripheral [ Right Pulse Oximetry] Respiratory 16 16 Rate Blood Pressure 118/58 L 136/64 [Right Upper Arm] O2 Sat by Pulse 99 99 Oximetry O2 Sat by Pulse 99 Oximetry [Room Air] - Orders/Labs/Meds Orders: Active Orders 24 hr Category Date Time Status Cardiac Monitoring [RC] . DIRECTED Care 07/24/20 15:45 Active EKG Documentation Completion [RC] ASDIRECTED Care 07/24/20 15:45 Active Oxygen Therapy, ED [RC] PRN Care 07/24/20 15:45 Active Peripheral IV Care [RC] . DIRECTED Care 07/24/20 15:45 Active Pulse Oximetry [RC] CONTINUOUS Care 07/24/20 15:45 Active Up With Assistance [RC] PFP Care 07/24/20 15:45 Active Vital Signs [RC] PFP Care 07/24/20 15:45 Active Nothing per Oral Now Diet [DIET] Diet 07/24/20 Breakfast Active Chest 1V Frontal [CR] Stat Exams 07/24/20 15:45 Taken Sodium Chloride 0.9% [Saline Flush] Med 07/24/20 15:44 Active 10 ml FLUSH ASDIRECTED PRN Isolation [COMM] Routine Oth 07/24/20 15:46 Active Obtain Past Medical Record [OM.PC] Urgent Oth 07/24/20 15:45 Active Peripheral IV Insertion Adult [OM.PC] Stat Oth 07/24/20 15:45 Ordered Resuscitation Status Stat Resus Stat 07/24/20 15:44 Ordered Medication Orders Sodium Chloride (Sodium Chloride 0.9% 10 Ml Syringe) 10 ml FLUSH ASDIRECTED PRN PRN Reason: Keep Vein Open Labs: Laboratory Tests 07/24/20 07/24/20 07/24/20 Range/Units 15:51 16:00 16:00 WBC 4.1 (4.0-10.2) K/uL RBC 4.35 (4.33-5.41) M/uL Hgb 13.5 (13.1-16.8) g/dL Hct 39.7 (39.0-49.0) % MCV 91.3 (84.0-98.0) fL MCH 31.0 (28.2-33.3) pg MCHC 34.0 (31.7-36.0) g/dL RDW 13.2 (11.2-14.1) % Plt Count 122 L (150-350) K/uL Neut % (Auto) 57.1 (45.0-80.0) % Lymph % (Auto) 28.2 (10.0-50.0) % Pratt % (Auto) 14.5 H (2.0-14.0) % Eos % (Auto) 0.2 (0.0-5.0) % Baso % (Auto) 0.0 (0.0-2.0) % Neut # (Auto) 2.33 (1.40-7.00) K/uL Lymph # (Auto) 1.15 (0.50-3.50) K/uL Pratt # (Auto) 0.59 (0.00-1.00) K/uL Eos # (Auto) 0.01 (0.00-0.50) K/uL Baso # (Auto) 0.00 (0.00-0.20) K/uL PT 9.6 (9.5-12.0) SEC INR 1.0 APTT 35.7 H (24.5-32.8) SEC D-Dimer, Quantitative (0-400) ng/mL Sodium (136-145) mmol/L Potassium (3.5-5.1) mmol/L Chloride (98-107) mmol/L Carbon Dioxide (21.0-32.0) mmol/L BUN (7-18) mg/dL Creatinine (0.51-1.17) mg/dL Est Cr Clr Drug Dosing mL/min Estimated GFR (MDRD) mL/min Glucose (70-99) mg/dL Lactic Acid (0.4-2.0) mmol/L Uric Acid (2.6-7.2) mg/dL Calcium (8.5-10.1) mg/dL Magnesium (1.8-2.4) mg/dL Total Bilirubin (0.2-1.0) mg/dL AST (15-37) U/L ALT (12-78) U/L Alkaline Phosphatase (46-116) IU/L Creatine Kinase (26-308) U/L Creatine Kinase Index (0.0-2.5) % CK-MB (CK-2) (0.00-3.60) ng/mL Troponin I (0.000-0.056) ng/mL NT-Pro-B Natriuret Pep (0-125) pg/mL Total Protein (6.4-8.2) g/dL Albumin (3.4-5.0) g/dL TSH, Ultra Sensitive (0.358-3.740) mIU/mL SARS-CoV-2 RNA (CAROL) Positive H (NEGATIVE) 07/24/20 07/24/20 07/24/20 Range/Units 16:00 16:00 16:00 WBC (4.0-10.2) K/uL RBC (4.33-5.41) M/uL Hgb (13.1-16.8) g/dL Hct (39.0-49.0) % MCV (84.0-98.0) fL MCH (28.2-33.3) pg MCHC (31.7-36.0) g/dL RDW (11.2-14.1) % Plt Count (150-350) K/uL Neut % (Auto) (45.0-80.0) % Lymph % (Auto) (10.0-50.0) % Pratt % (Auto) (2.0-14.0) % Eos % (Auto) (0.0-5.0) % Baso % (Auto) (0.0-2.0) % Neut # (Auto) (1.40-7.00) K/uL Lymph # (Auto) (0.50-3.50) K/uL Pratt # (Auto) (0.00-1.00) K/uL Eos # (Auto) (0.00-0.50) K/uL Baso # (Auto) (0.00-0.20) K/uL PT (9.5-12.0) SEC INR APTT (24.5-32.8) SEC D-Dimer, Quantitative < 100 (0-400) ng/mL Sodium 139 (136-145) mmol/L Potassium 3.8 (3.5-5.1) mmol/L Chloride 102 (98-107) mmol/L Carbon Dioxide 28.1 (21.0-32.0) mmol/L BUN 8 (7-18) mg/dL Creatinine 0.68 (0.51-1.17) mg/dL Est Cr Clr Drug Dosing 155.07 mL/min Estimated GFR (MDRD) > 60 mL/min Glucose 103 H (70-99) mg/dL Lactic Acid 0.6 (0.4-2.0) mmol/L Uric Acid 5.4 (2.6-7.2) mg/dL Calcium 8.5 (8.5-10.1) mg/dL Magnesium 1.8 (1.8-2.4) mg/dL Total Bilirubin 0.3 (0.2-1.0) mg/dL AST 24 (15-37) U/L ALT 29 (12-78) U/L Alkaline Phosphatase 47 (46-116) IU/L Creatine Kinase 182 (26-308) U/L Creatine Kinase Index 0.8 (0.0-2.5) % CK-MB (CK-2) 1.50 (0.00-3.60) ng/mL Troponin I 0.000 (0.000-0.056) ng/mL NT-Pro-B Natriuret Pep 14 (0-125) pg/mL Total Protein 7.4 (6.4-8.2) g/dL Albumin 4.1 (3.4-5.0) g/dL TSH, Ultra Sensitive 3.404 (0.358-3.740) mIU/mL SARS-CoV-2 RNA (CAROL) (NEGATIVE) Microbiology 07/24/20 15:51 Influenza Type A Antigen Screen - Final Nasal, Unspecified NEGATIVE INFLUENZA A VIRUS AG REFERENCE RANGE: NEGATIVE Influenza Type B Antigen Screen - Final NEGATIVE INFLUENZA B VIRUS AG REFERENCE RANGE: NEGATIVE Meds: Medications Generic Name Dose Route Start Last Admin Trade Name Freq PRN Reason Stop Dose Admin Sodium Chloride 10 ml 07/24/20 15:44 Sodium Chloride 0.9% 10 Ml Syringe FLUSH ASDIRECTED PRN Keep Vein Open Discontinued Medications Generic Name Dose Route Start Last Admin Trade Name Cathryn PRN Reason Stop Dose Admin Aspirin 324 mg 07/24/20 15:44 Aspirin 81 Mg Tab.Chew CHEW 07/24/20 15:45 ONETIME ONE Famotidine 40 mg 07/24/20 15:44 Famotidine 20 Mg/2 Ml Sdv IVPUSH 07/24/20 15:45 ONETIME ONE Ticagrelor 180 mg 07/24/20 15:44 Ticagrelor 90 Mg Tab PO 07/24/20 15:45 ONETIME ONE - Radiology Interpretation Free Text/Narrative:: pvc monitor shows normal sinus rhythm in the 80s to 90s with no ectopy or arrhythmia. Chest x-ray, portable, shows mild to moderate pulmonary obstructive disease with no pulmonary infiltrates, cardiomegaly, CHF, pneumothorax, etc. Departure - Departure Time of Disposition: 17:40 Disposition: Home, Self-Care 01 Clinical Impression: Tobacco abuse counseling, Thrombocytopenia, COVID-19 Chest pain Qualifiers: Chest pain type: chest pain on breathing Qualified Code(s): R07.1 - Chest pain on breathing Asthma Qualifiers: Asthma severity: mild Asthma persistence: intermittent Asthma complication type: uncomplicated Qualified Code(s): J45.20 - Mild intermittent asthma, uncomplicated Osteoarthritis Qualifiers: Osteoarthritis location: multiple joints Osteoarthritis type: primary Qualified Code(s): M89.49 - Other hypertrophic osteoarthropathy, multiple sites - Discharge Information *PRESCRIPTION DRUG MONITORING PROGRAM REVIEWED*: Not Applicable *COPY OF PRESCRIPTION DRUG MONITORING REPORT IN PATIENT CODY: Not Applicable Instructions: COVID-19: How to Protect Yourself and Others - CDC, COVID-19: Quarantine vs. Isolation - CDC, EUA of the Moderna COVID-19 Vaccine for Recipients and Caregivers, Prevent the Spread of COVID-19 if You Are Sick - [facility] Referrals: Aneesh Marie PA [Primary Care Provider] - Forms: ED Department Discharge, ED Return to Work/School Form Additional Instructions: 1. Followup with your regular provider in 7 days as directed. Bring these discharge instructions with you to that visit. 2. Tylenol 650 mg by mouth every 4 hours and/or OTC ibuprofen 2-3 tabs by mouth every 6 hours with food as directed./needed. You may stagger these medications for 48-72 hours only, which essentially means that you are receiving a pain medication about every 2 hours. 3. Isolation and hygiene precautions as discussed with notification of your friends, coworkers, etc. concerning your current COVID-19 infection 4. Stop all tobacco use CIRA as directed/per provided information and consider contacting [employer]uit [employer]ne, etc.. 5. Immediately after this visit verify that your cellular telephone's voicemail has been activated and is empty. Also verify that your home telephone's answering machine is operating properly and has space to receive messages. Note that it is sometimes necessary for us to be able to contact you at a later date to discuss your medical care. 6. Please remember that we are ALWAYS here for you and want to answer any questions you may have. Feel free to call the hospital any time and we call you back CIRA. 7. Contact Public Health tomorrow about your newly diagnosed COVID-19 infection with possible immunization further recommendations. 8. Use your nebulizer treatments at least 4 times a day with every 4 hours as needed until otherwise directed by your regular provider. 9. Check with [facility] tomorrow about possibly obtaining a home oximetry unit 10. Update your regular provider in the next 1-2 days concerning your symptoms, recent COVID-19 infection, etc. Sepsis Event Note (ED) - Focused Exam Vital Signs: Vital Signs Temp Pulse Resp BP Pulse Ox Pulse Ox 07/24/20 16:01 36.7 C 100 16 136/64 99 07/24/20 15:49 36.7 C 118 H 16 118/58 L 99 07/24/20 15:45 99 - Problem List & Annotations (1) COVID-19 SNOMED Code(s): 115066725 Code(s): U07.1 - COVID-19 Status: Acute Priority: High Current Visit: Yes Onset Date: ~07/21/20 Annotation/Comment:: Positive diagnosis for COVID- 19 with the patient not previously receiving any immunizations or previous history of COVID-19 infection. Various therapeutic options were discussed with the patient. Note excellent O2 saturations in the emergency room with only minimal clinical findings and no significant changes in his chest x-ray. Patient does not qualify for monoclonal antibody treatment. The patient was counseled concerning risks and benefits of anticoagulation therapy with no further anticoagulation at this time. Note normal D-dimer with patient cautioned on warning symptoms and progression of this disease. His children did receive Covid testing at the [facility] in [place] earlier today. The patient was counseled on contact tracing, etc. Work excuse provided. Immu nization for COVID-19 recommended 90 days after monoclonal antibody treatment. The patient did not get a flu shot this year with yearly influenza boosters recommended. Close follow-up by his regular provider as per discharge instructions. He is planning to purchase a finger oximeter. (2) Chest pain SNOMED Code(s): 51224009 Code(s): R07.9 - CHEST PAIN, UNSPECIFIED Status: Acute Priority: High Current Visit: Yes Onset Date: ~07/21/20 Annotation/Comment:: Chest pain protocol initiated in the emergency room. Symptoms somewhat atypical in nature and likely secondary to his COVID-19 infection. Hospitalization for rule out ND is not warranted at this time. Qualifiers: Chest pain type: chest pain on breathing Qualified Code(s): R07.1 - Chest pain on breathing; R07.81 - Pleurodynia (3) Asthma SNOMED Code(s): 359461349 Code(s): J45.909 - UNSPECIFIED ASTHMA, UNCOMPLICATED Status: Chronic Priority: Medium Current Visit: Yes Annotation/Comment:: No recent fever or true bronchitic type symptoms. No fever or leukocytosis during today's evaluation. Continue nebulizer treatments at home for now with these to be used on a 4 times daily basis with every 4 hours as needed for the next 10 days. Qualifiers: Asthma severity: mild Asthma persistence: intermittent Asthma complicati on type: uncomplicated Qualified Code(s): J45.20 - Mild intermittent asthma, uncomplicated (4) Thrombocytopenia SNOMED Code(s): 425616882 Code(s): D69.6 - THROMBOCYTOPENIA, UNSPECIFIED Status: Chronic Priority: Medium Current Visit: Yes Annotation/Comment:: Stable per medical records (5) Osteoarthritis SNOMED Code(s): 465320131 Code(s): M19.90 - UNSPECIFIED OSTEOARTHRITIS, UNSPECIFIED SITE Status: Chronic Priority: Medium Current Visit: Yes Annotation/Comment:: Note previous discectomy in May 2020 as above. Otherwise stable by history with nonspecific arthralgias and rash as above secondary to his current COVID-19. Qualifiers: Osteoarthritis location: multiple joints Osteoarthritis type: primary Qualified Code(s): M89.49 - Other hypertrophic osteoarthropathy, multiple sites (6) Tobacco abuse counseling SNOMED Code(s): 307627873, 876833669, [id number] Code(s): Z71.6 - TOBACCO ABUSE COUNSELING Status: Chronic Priority: Medium Current Visit: Yes Annotation/Comment:: Tobacco cessation was once again strongly encouraged with information provided at discharge. - Problem List Review Problem List Initiated/Reviewed/Updated: Yes - My Orders Last 24 Hours: My Active Orders 07/24/20 Breakfast Nothing per Oral Now Diet [DIET] 07/24/20 15:44 Sodium Chloride 0.9% [Saline Flush] 10 ml FLUSH ASDIRECTED PRN Resuscitation Status Stat 07/24/20 15:45 Cardiac Monitoring [RC] . DIRECTED EKG Documentation Completion [RC] ASDIRECTED Oxygen Therapy, ED [RC] PRN Peripheral IV Care [RC] . DIRECTED Pulse Oximetry [RC] CONTINUOUS Up With Assistance [RC] PFP Vital Signs [RC] PFP Chest 1V Frontal [CR] Stat Obtain Past Medical Record [OM.PC] Urgent Peripheral IV Insertion Adult [OM.PC] Stat 07/24/20 15:46 Isolation [COMM] Routine - Assessment/Plan Last 24 Hours: My Active Orders 07/24/20 Breakfast Nothing per Oral Now Diet [DIET] 07/24/20 15:44 Sodium Chloride 0.9% [Saline Flush] 10 ml FLUSH ASDIRECTED PRN Resuscitation Status Stat 07/24/20 15:45 Cardiac Monitoring [RC] . DIRECTED EKG Documentation Completion [RC] ASDIRECTED Oxygen Therapy, ED [RC] PRN Peripheral IV Care [RC] . DIRECTED Pulse Oximetry [RC] CONTINUOUS Up With Assistance [RC] PFP Vital Signs [RC] PFP Chest 1V Frontal [CR] Stat Obtain Past Medical Record [OM.PC] Urgent Peripheral IV Insertion Adult [OM.PC] Stat 07/24/20 15:46 Isolation [COMM] Routine Assessment:: As above Plan: As above. Extensive precautions were given to the patient, who is in agreement with the treatment plan.
[2020-07-24 16:50] LABS: PTT,PARTIAL THROMBOPLSTIN TIME 35.7 SEC (24.5-32.8)
[2020-07-24 17:03] LABS: CHLORIDE,CL 102 mmol/L (98-107); SODIUM,NA 139 mmol/L (136-145)
== END 2020-07-24 17:41 | disposition home or self-care (01) ==
LOC: LL.ED 15:29
DX: U07.1 COVID-19 (principal); J45.20 Mild intermittent asthma, uncomplicated; M89.49 Other hypertrophic osteoarthropathy, multiple sites; D69.6 Thrombocytopenia, unspecified; Z71.6 Tobacco abuse counseling; Z88.0 Allergy status to penicillin; Z72.0 Tobacco use
CPT/HCPCS: 36415; 71045; 80053; 82550; 82553; 83605; 83735; 83880; 84443; 84484; 84550; 85025; 85379; 85610; 85730; 87804; 93005; 93010; 96374; 99284; 99285-25; U0002